=== PATIENT | female | born 1975 | race Caucasian/White ===

== ENCOUNTER 2016-09-16 11:39 | Emergency (ER) | payer OTHER ==
[~2016-09-16] VITALS: Ht 165.1 cm; Wt 71.8 kg
[~2016-09-16 11:39] MED LIST: LORA-474 PO; PEPT262C2 CHEW; TYLE325T PO; ZANT150T2 PO
[2016-09-16 11:42] VITALS: BP 134/96; PULSE 113; RESP 16; TEMP 98.5; O2SAT 97
[2016-09-16] MEDS ORDERED: LORazepam 2 MG/ML VIAL IV ONE (12:15)
[2016-09-16] MEDS ORDERED: SODIUM CHLOR 0.9% 1000 ML INJ 1,000 ML IV ONE (12:15)
--- NOTE | 2016-09-16 12:22 | PD ---
HPI Chief Complaint: Psychiatric Symptoms Time Seen by Provider: 12:09 Travel History International Travel<30 days: No Contact w/Intl Traveler<30days: No Traveled to known affect area: No History of Present Illness HPI 41-year-old woman who presents to the emergency department stating that she hasn 't slept in 3-4 days. States she has a history of bipolar disorder anxiety and insomnia. She was recently placed on what to do. She has prescription for benzodiazepines as well. She states she is become progressively more depressed , and anxious. She states she normally only sleeps for a couple hours each night but over the past several days has not been able sleep at all. She states she saw her psychiatrist and they told her that they do not think are sleep disorders. She has some history of sleep apnea as well. She states every time she tries to fall asleep she stops breathing her heart started beating fast and she is flung onto the floor. History Past Medical History Narrative Medical Bipolar disorder Anxiety Insomnia Influenza Vaccination: No Social History Alcohol Use: No Tobacco Use: No (QUIT 2012) Allergies-Medications (Allergen,Severity, Reaction): Coded Allergies: Penicillin (Verified Allergy, Severe, THROAT SWELLING AND HIVES, 09/16/16) Reported Meds & Prescriptions Reported Meds & Active Scripts Active Reported Pepto-Bismol (Bismuth Subsalicylate) 262 Mg Chew 524 Mg CHEW PRN Tylenol (Acetaminophen) 325 Mg Tab 325 Mg PO ONCE Zantac (Ranitidine HCl) 150 Mg Tab 150 Mg PO BID Ativan (Lorazepam) 1 Mg Tab 1 Mg PO BID PRN Review of Systems Except as stated in HPI: all other systems reviewed are Neg Physical Exam Narrative GENERAL: 41-year-old woman, tearful and crying. SKIN: Warm and dry. HEAD: Atraumatic. Normocephalic. CARDIOVASCULAR: Heart rate rapid and irregular. No murmurs. RESPIRATORY: No accessory muscle use. Clear to auscultation. Breath sounds equal bilaterally. GASTROINTESTINAL: Abdomen soft, non-tender, nondistended. Hepatic and splenic margins not palpable. MUSCULOSKELETAL: No obvious deformities. No clubbing. No cyanosis. No edema. NEUROLOGICAL: Awake and alert. No obvious cranial nerve deficits. Motor grossly within normal limits. Normal speech. PSYCHIATRIC: Anxious and tearful. Data Data Last Documented VS Vital Signs Date Time Temp Pulse Resp B/P Pulse Ox O2 Delivery O2 Flow Rate FiO2 09/16/16 11:54 109 18 09/16/16 11:42 98.5 134/96 97 Room Air Orders Complete Blood Count With Diff (09/16/16 12:09) Comprehensive Metabolic Panel (09/16/16 12:09) Thyroid Stimulating Hormone (09/16/16 12:09) Drug Screen, Random Urine (09/16/16 12:09) Alcohol (Ethanol) (09/16/16 12:09) Beta Hcg (Quant/Titer) (09/16/16 12:09) Psych Screen (09/16/16 12:09) Lorazepam Inj (Ativan Inj) (09/16/16 12:15) Sodium Chlor 0.9% 1000 Ml Inj (Ns 1000 M (09/16/16 12:15) Labs Laboratory Tests Test 09/16/16 09/16/16 12:14 12:23 White Blood Count 11.1 TH/MM3 Red Blood Count 4.56 MIL/MM3 Hemoglobin 14.3 GM/DL Hematocrit 41.5 % Mean Corpuscular Volume 91.1 FL Mean Corpuscular Hemoglobin 31.3 PG Mean Corpuscular Hemoglobin 34.4 % Concent Red Cell Distribution Width 12.2 % Platelet Count 329 TH/MM3 Mean Platelet Volume 7.5 FL Neutrophils (%) (Auto) 71.3 % Lymphocytes (%) (Auto) 22.2 % Monocytes (%) (Auto) 5.5 % Eosinophils (%) (Auto) 0.4 % Basophils (%) (Auto) 0.6 % Neutrophils # (Auto) 7.9 TH/MM3 Lymphocytes # (Auto) 2.5 TH/MM3 Monocytes # (Auto) 0.6 TH/MM3 Eosinophils # (Auto) 0.0 TH/MM3 Basophils # (Auto) 0.1 TH/MM3 CBC Comment DIFF FINAL Differential Comment Sodium Level 136 MEQ/L Potassium Level 3.9 MEQ/L Chloride Level 101 MEQ/L Carbon Dioxide Level 26.2 MEQ/L Anion Gap 9 MEQ/L Blood Urea Nitrogen 10 MG/DL Creatinine 0.65 MG/DL Estimat Glomerular Filtration 100 ML/MIN Rate Random Glucose 94 MG/DL Calcium Level 9.0 MG/DL Total Bilirubin 0.3 MG/DL Aspartate Amino Transf 11 U/L (AST/SGOT) Alanine Aminotransferase 22 U/L (ALT/SGPT) Alkaline Phosphatase 54 U/L Total Protein 7.5 GM/DL Albumin 4.1 GM/DL Thyroid Stimulating Hormone 1.560 uIU/ML 3rd Gen Human Chorionic Gonadotropin, LESS THAN 1 Quant MIU/ML Ethyl Alcohol Level LESS THAN 3 MG/DL Urine Opiates Screen NEG Urine Barbiturates Screen NEG Urine Amphetamines Screen NEG Urine Benzodiazepines Screen NEG Urine Cocaine Screen NEG Urine Cannabinoids Screen POS MDM Medical Decision Making Medical Screen Exam Complete: Yes Emergency Medical Condition: Yes Interpretation(s) LABS: CBC is unremarkable. CMP is unremarkable TSH is normal HCG is negative UA negative Urine drug screen positive for cannabinoids Alcohol negative Differential Diagnosis Anxiety disorder, bipolar disorder moises, sleep disorder Narrative Course Medical decision making INITIAL cause a 41-year-old woman who presents emergency department history of bipolar disorder with insomnia and emotional lability. She states she has sleep apnea as well. I truly was this is unclear, she certainly does not body habitus for obstructive sleep apnea. On her paper she has written "electrical" sleep apnea. Her symptoms seem to be consistent with anxiety and depression. We'll check labs, IV fluids, benzodiazepine, psychiatric evaluation. FINAL: Patient medically clear for psychiatric evaluation. Joseph Way MD Sep 16, 2016 12:22
[2016-09-16 12:26] LABS: AUTOMATED NEUTROPHIL # 7.9 TH/MM3 (1.8-7.7); BASOPHIL # 0.1 TH/MM3 (0-0.2); BASOPHIL % 0.6 % (0.0-2.0); EOSINOPHIL % 0.4 % (0.0-4.0); HEMATOCRIT 41.5 % (35.0-46.0); HEMO FLAGS DIFF FINAL; LYMPH % 22.2 % (9.0-44.0); LYMPHOCYTE # 2.5 TH/MM3 (1.0-4.8); MEAN CELL VOLUME 91.1 FL (80.0-100.0); MEAN CORPUSCULAR HEMOGLOBIN 31.3 PG (27.0-34.0); MEAN CORPUSCULAR HGB CONC 34.4 % (32.0-36.0); MONO % 5.5 % (0.0-8.0); NEUT % 71.3 % (16.0-70.0); PLATELET COUNT 329 TH/MM3 (150-450); RED BLOOD COUNT 4.56 MIL/MM3 (4.00-5.30); RED CELL DISTRIBUTION WIDTH 12.2 % (11.6-17.2); WHITE BLOOD COUNT 11.1 TH/MM3 (4.0-11.0)
[2016-09-16 12:43] LABS: ANION GAP 9 MEQ/L (5-15); AST (GOT) 11 U/L (15-37); BICARBONATE 26.2 MEQ/L (21.0-32.0); BLOOD UREA NITROGEN 10 MG/DL (7-18); CHLORIDE 101 MEQ/L (98-107); GLOMERULAR FILTRATION RATE 100 ML/MIN (>89); POTASSIUM 3.9 MEQ/L (3.5-5.1); SODIUM (NA) 136 MEQ/L (136-145)
[2016-09-16 12:52] LABS: AMPHETAMINE, URINE NEG (NEG); BARBITURATES, URINE NEG (NEG); COCAINE, URINE NEG (NEG)
[2016-09-16 12:53] LABS: ALKALINE PHOSPHATASE 54 U/L (45-117); ALT (GPT) 22 U/L (10-53); BETA HCG QUANT LESS THAN 1 MIU/ML (0-5); TOTAL BILIRUBIN ADULT 0.3 MG/DL (0.2-1.0)
[2016-09-16 13:44] VITALS: BP 152/103; PULSE 80; RESP 18; O2SAT 98
[2016-09-16 16:30] VITALS: BP 119/70; PULSE 92; RESP 18; O2SAT 97
[2016-09-16] MEDS ORDERED: NEXI20CA PO (18:52)
[2016-09-16 19:01] VITALS: BP 135/78; PULSE 81; RESP 16; O2SAT 99
[2016-09-16 22:24] VITALS: BP 119/71; PULSE 89; RESP 18; O2SAT 99
== END 2016-09-17 02:11 | disposition home or self-care (01) ==
LOC: NEPE 11:39 → NEPJ 09-17 02:11
DX: F31.9 Bipolar disorder, unspecified (principal); G47.00 Insomnia, unspecified; F41.9 Anxiety disorder, unspecified
CPT/HCPCS: 80053; 80307; 80320; 84443; 84702; 85025; 96374; 99284; J2060; J7030